=== PATIENT | female | born 1980 | race Caucasian/White ===

== ENCOUNTER 2024-04-12 08:47 | Outpatient (CLI) | payer BC, SELFPAY ==
--- OUTSIDE RECORDS SUMMARY | 2024-04-12 08:54 | XMS_ITS | Continuity of Care Document ---
Author Organization [facility] Address [address] [place] [address] Phone Care Team Providers Care Quantitative Consultant Name Role Phone Eliana PEDERSEN, PhD, Julio Unavailable Unavai lable Allergies, Adverse Reactions, Alerts Substance Reaction Status Criticality No Known Allergies Active No Inform ation Medications Medication Instructions Dosage Effective Dates (start - stop) Status Comments BACLOFEN (unknown strength) Not Available - Active KEFLEX (unknown strength) Not Available - Active VITAMIN D3 (unknown strength) Not Available - Active ADDERALL (unknown strength) Not Available - Active LEXAPRO (unknown strength) Not Available - Active GABAPENTIN (unknown strength) Not Available - Active NORCO (unknown strength) Not Available - Active DEPO-PROVERA (unknown strength) Not Available - Active LITHIUM CARBONATE (unknown strength) Not Available - Active PREDNISONE (unknown strength) Not Available - Active SEROQUEL (unknown strength) Not Available - Active Procedures Procedure Date Office/Outpatient Visit,[facility], Mod 2023 X-Ray Exam Of Neck Spine, 4+ Views Mar- X-Ray Exam Lwr Spine, Min 4 Views Office/Outpatient Visit,[facility], Mod 2019 Advance Directives Directive Yes / No Effective Date File Name No Information Encounters Encounter Description Practice Location Reason(s) For Visit Diagnoses Date Provider Providers Copied on Encounter [facility], [address], [facility] [place] [facility], [id number], [place] tel:[phone] [facility] No Information Eliana Kim. [facility], [address], [facility] [place], [address], [place]. tel:[phone] Office/Outpat ient Visit,New, Mod [facility], [address], [facility] [place], [id number], [place] tel:[phone] [facility] Spondylolisthe sis, lumbar regionSpinal stenosis, lumbar region with neurogenic claudication Eliana Kim. [facility], [address], [facility] [place], [address], [place]. tel:[phone] Referring Provider: Juilo Monroy, [facility] [address], [place], [address]. tel:[phone] Office/Outpat ient Visit,New, Mod [facility], [address], [facility] [place], [id number], [place] tel:[phone] [facility] No Information Eliana Kim. [facility], [address], [place], [address], [place]. tel:[phone] Referring Provider: Julio Monroy, [facility] [address], [place], [address]. tel:[phone] Family History Family Member Type Diagnosis Age At Onset No Information Payers Payer name Insurance type Covered green party ID Karyn vilchis([place] [id number] [facility] [id number] Social History Type Description Quantity Date Captured Comments Alcohol Use Details Unknown Caffeine Use Details Unknown Tobacco Use Status Smoking Status No Information Sex Female Chief Complaint And Reason For Visit No Information Reason For Referral Reason For Referral No Information Plan Of Treatment Date Type Action Status Future Order: Radiology Order Tr ansforaminal Kxupeqh-Atoxni-Gxtgpnzlqhljvl (TRANSLUMNONPART), Ordered on: Ordered History Of Present Illness Encounter Date Complaint History Of Prese nt Illness No Information Functional Status Date Functional Assessmen t No Information Instructions Date Instruction Additional Infor mation No Information Assessments Type Assessment Date No Information Patient Care Teams Name Effective Dates (start - stop) Status Members No Information
--- OUTSIDE RECORDS SUMMARY | 2024-04-12 08:54 | XMS_ITS | Clinical Summary ---
Author Organization [facility] Address [place], [place] [address] Care Team Providers Care Imagery Intelligence Name Role Phone Sophie Ren Primary Care Provider [phone] Allergies No known active allergies Medications Medication Sig Dispensed Refills Start Date End Date Status multivitamin (MVI) tablet Take 1 tablet by mouth once daily. 0 03/17/2017 Active durable medical equipment (DME)Indications:Cl osed fracture of left foot, initial encounter [id number] Ezequiel, Jefry, Medium 1 Each 04/24/2022 Active NebulizerIndication s:Moderate persistent asthma without complication Use as directed for asthma. 1 Each 12/11/2022 Active NebulizerIndication s:Moderate persistent asthma with acute exacerbation Use as directed. 1 Each 01/23/2023 Active albuterol (PROVENTIL) 0.083 % neb solutionIndications :Moderate persistent asthma without complication Inhale 3 mL (2.5 mg) via a nebulizer every 4 hours if needed for Shortness Of Breath or Wheezing. 180 mL 11 01/23/2023 Active fluticasone propion-salmeteroL (Advair Diskus) 250-50 mcg/Dose diskus inhalerIndications: Moderate persistent asthma with acute exacerbation Inhale 1 Puff by mouth every 12 hours. 60 Each 01/23/2023 Active adapalene (DIFFERIN) 0.1 % creamIndications:Ac ne vulgaris Apply topically to affected area(s) at bedtime. 45 g 2 05/12/2023 Active amLODIPine (NORVASC) 5 mg tabletIndications:H TN (hypertension) Take 1 Tablet (5 mg) by mouth once daily. 90 Tablet 3 09/21/2023 Active albuterol HFA (PRO-AIR; VENTOLIN; PROVENTIL) 90 mcg/actuation inhalerIndications: Moderate persistent asthma without complication Inhale 1-2 Puffs by mouth every 4 hours if needed for Shortness Of Breath or Wheezing. 8.5 g 11 09/21/2023 Active LORazepam (ATIVAN) 0.5 mg tabIndications:Felicity c attack Take 1 Tablet (0.5 mg) by mouth every 6 hours if needed for Anxiety. 30 Tablet 1 12/31/2023 Active dextroamphetamine-a mphetamine (Adderall XR) 30 mg Extended-Release capsuleIndications: Attention deficit hyperactivity disorder (ADHD), combined type Take 1 Capsule (30 mg) by mouth once daily. 30 Capsule 03/02/2024 4 Active dextroamphetamine-a mphetamine (Adderall XR) 30 mg Extended-Release capsuleIndications: Attention deficit hyperactivity disorder (ADHD), combined type Take 1 Capsule (30 mg) by mouth once daily. 30 Capsule 04/01/2024 4 Active dextroamphetamine-a mphetamine (Adderall XR) 30 mg Extended-Release capsuleIndications: Attention deficit hyperactivity disorder (ADHD), combined type Take 1 Capsule (30 mg) by mouth once daily. 30 Capsule 05/01/2024 Active traMADoL (ULTRAM) 50 mg tabletIndications:C ervical radicular pain,Lumbar radicular pain Take 1 Tablet (50 mg) by mouth 2 times daily if needed for Pain. 20 Tablet 04/01/2024 Active traMADoL (ULTRAM) 50 mg tabletIndications:C ervical radicular pain,Lumbar radicular pain Take 1 Tablet (50 mg) by mouth 2 times daily if needed for Pain. 20 Tablet 03/08/2024 4 Discontinue d(Reorder (E-cancel not sent)) Hospital, Clinic, or Other Facility Administered Medication Ordered Dose Route Frequency Start Date End Date Status medroxyPROGESTERone acetate (contraceptive) (DEPO-PROVERA) injection 150 mgIndications:Depo-Pr overa contraceptive status 150 mg IM Q 3 MONTHS (12 WEEKS) 02/20/2024 01/21/2025 Active Active Problems Problem Noted Date Diagnosed Date ASCUS with positive high risk HPV cervical 05/14 Overview (10/01/2023): 04/04/2015 NIL/HPV Negative 2015 Abnormal pap/HPV+ 2016 Abnormal pap/HPV+ 2017 Abnormal pap/HPV+ (never had a colp per pt) 05/14/2021 ASCUS/HPV+, HPV 16+, HPV 18 negative 09/2023 NIL/HPV negative. Plan: Pap/HPV due 09/2024. Mild intermittent asthma without complication Major depressive disorder wi th single episode, in full remission 04/06/2018 Chronic pain syndrome 04/06/2018 Anxiety 04/06/2018 Acute bilateral low back pain with left-sided sc iatica 12/14/2017 Attention deficit hyperactiv ity disorder (ADHD), combined type 03/21/2016 Overview (03/21/2016): diagnosed by psychiatrist-Dr Castañeda Migraine without aura 03/21/2016 Overview (03/21/2016): Dr Castañeda Resolved Problems Problem Noted Date Diagnosed Date Resolved Date Attention deficit hyperactiv ity disorder (ADHD), combined type 07/06/2020 05/26/2022 Overview (11/12/2020): Dr. Nair Lymphadenopathy 04/19/2018 05/26/2022 Overview (04/19/2018): 04/2018 Patient noted to have lymphadenopathy on CT scan most likely secondary to her pulmonary edema and effusions. However, in discussion with radiology, given history of smoking, we recommend repeat CT scan in 6 months to one year to assess for resolution. Hemothorax 04/10/2018 05/26/2022 Pleural effusion 04/10/2018 05/26/2022 Bacteremia 04/10/2018 05/26/2022 Acute systolic (congestive) heart failure 04/10/2018 05/26/2022 Septic shock due to Escherichia coli 04/08/2018 05/26/2022 Pyelonephritis 04/08/2018 05/26/2022 Gram negative septic shock 04/07/2018 1 07/26/2021 Severe sepsis 04/06/2018 05/26/2022 ADHD 04/06/2018 09/27/2019 depression 03/21/20162021 Overview (03/21/2016): Dr Castañeda Previous delivery a ffecting , delivered 09/21/2015 03/21/2016 Previous delivery a ffecting , antepartum 08/23/2015 03/21/2016 Overview (08/23/2015): Previous C/S (4) Uterine scar from previous c esarean delivery affecting 08/21/2015 03/21/2016 labor in third trime ster without delivery 08/21/2015 03/21/2016 tubal ligation planned 08/21/2015 03/21/2016 Abdominal pain affecting pre gnancy, antepartum 08/21/2015 03/21/2016 Overview (08/21/2015): 4 prior cesareans, ? scar dehisc vs other etiol? Unspecified problem associat ed with amniotic cavity and membranes, antepartum 06/24/2007 016 Overview (06/24/2007): apparent amniotic cyst not obstructing umbilical cord Acute sinusitis, unspecified 10/25/2006 03/21/2016 Headache(784.0) 10/25/2006 03/21/2016 Tobacco use disorder 10/25/2006 016 Acute upper respiratory infe ctions of unspecified site 10/25/2006 08/21/2015 Unspecified asthma(493.90) 1 07/26/2021 Encounters Date Type Department Care Team Description 04/11/2024 Travel 04/04/2024 Telephone [facility] [address] [place] [address] Jason Denise MD Questions (LUMBAR INJECTION) 03/17/2024 Transcribe Orders [facility] [address] [place] [address] Jason Denise MD 03/08/2024 2:10 PM CDT Phone Office Visit [facility] [address] [place] [address] Sophie Ren PA Form (FMLA forms-she still needs to request for [employer]) 03/08/2024 Travel 02/26/2024 Orders Only [facility] [address] [place] [address] Sophie Ren PA <No scans attached> 2024 4:15 PM CDT Ancillary Procedure [facility] [address] [facility] [address] [place] [address] 2024 3:30 PM CDT Ancillary Procedure [facility] [address] [facility] [address] [place] [address] 2024 Travel 02/19/2024 8:50 AM CDT Office Visit [facility] [address] [place] [address] Sophie Ren PA Back Pain (Off and on numbness in arm and leg-low back pain and fusion in neck getting worse again-also wants depo shot) 02/19/2024 Travel from Last 3 Months Immunizations Name Administration Dates Next Due Influenza Virus, Unspecified 04/04/2015,07/27/19 13,04/23/2011,05/13/2010 Influenza, CCIIV3 (Age >=6 MO) 02/20/2015 Influenza, IIV3 (Age >=3 years) 04/24/2009,04/30 Influenza, IIV4 03/16/2020,04/26/2019 Influenza, IIV4 (=>6mos) MDV 04/04/2015 Td (Age >=7 Years) 12/18/2001 Tdap 08/09/2015,07/27/2012 Family History Medical History Relation Name Comments Bipolar disorder Father Good Health Father Cancer Maternal Grandfather lung Cancer-breast Maternal Grandmother 40s Good Health Mother Cancer Paternal Uncle lung Bipolar disorder Sister Kristal Relation Name Status Comments Father Alive Maternal Grandfather Maternal Grandmother Mother Alive Paternal Uncle Sister Kristal Alive Social History Tobacco Use Types Packs/Day Years Used Date Smoking Tobacco: Some Days Cigarettes 1 15 Smokeless Tobacco: Never Tobacco Cessation:Ready to Q uit: Yes; Counseling Given: Yes Comments:a few cigarettes/week Alcohol Use Standard Drinks/Week Comments Yes 0 (1 standard drink = 0.6 oz pur e alcohol) occ. PHQ-2 Answer Date Recorded PHQ-2 TOTAL SCORE 0 09/21/2023 Social Connections Answer Date Recorded Frequency of Communication with Friends and Fami ly 0 09/21/2023 Financial Resource Strain Answer Date R ecorded Difficulty of Paying Living Expenses 3 09/21/2023 Difficulty of Paying Living Expenses Not on file 09/21/2023 Food Insecurity Answer Date Recorded Worried About Running Out of Food in the Last Ye ar 1 09/21/2023 Transportation Needs Answer Date Record ed Lack of Transportation (Medical) 1 09/21/2023 Housing Stability Answer Date Recorded Unable to Pay for Housing in the Last Year 1 09/21/2023 Sex and Gender Information Value Date Recorded Sex Assigned at Not on file Gender Identity Not on file Sexual Orientation Not on file Obstetrics History Para Term AB IAB SAB Ectopic Multiple Livin g Live Births 5 5 2 3 5 5 Date Outcome GA Total Labor Labor/2nd/3rd Weight Sex Type Anes PTL Amita A1 A5 Name Clin 997 Term 37w 0d 2.95 kg (6 lb 8 oz) M C-Sec tion N Livin g Hosea 003 Term 37w 0d 2.58 kg (5 lb 11 oz) F C-Sec tion Y Livin g Nomi n Complications: contra ctions 008 36w 0d 2.83 kg (6 lb 4 oz) M C-Sec tion Y Livin g Marco Antonio 012 36w 0d 2.75 kg (6 lb 1 oz) F C-Sec tion N Livin g Arlin Complications:None 016 35w 5d 2.25 kg (4 lb 15.4 oz) M C-Sec tion Livin g 8 7 Tegan Delivery Location:[facility] Last Filed Vital Signs Vital Sign Reading Time Taken Comments Blood Pressure 131/93 02/19/2024 8:53 AM CDT Pulse 110 02/19/2024 8:53 AM CDT Temperature 36.9 ??C (98.5 ??F) 08/04/2022 9:13 AM CS T Respiratory Rate 16 08/04/2022 9:13 AM WOOL SAMPLER Oxygen Saturation 100% 02/19/2024 8:53 AM CDT Inhaled Oxygen Concentration - - Weight 53.1 kg (117 lb) 02/19/2024 8:53 AM CDT Height 159.6 cm (5' 2.84) 09/21/2023 3:40 PM CD T Body Mass Index 20.83 09/21/2023 3:40 PM CDT Plan of Treatment Health Maintenance Due Date Last Done Comments Pneumococcal series for age 6-64 (1 of 2 - PCV) 1985 HIV for age 15-65 1994 Hepatitis C screening for ag e 18-79 1997 Colonoscopy through age 75 02/25/2024 Lipids for age 45-75 02/25/2024 COVID-19 vaccine series ( season) 2024 Influenza for age 9-49 03/06/2024 , 04/26/2019, 04/04/2015, Additional history exists BMI (ht and wt on same day) for age 18+ 09/20/2024 09/21/2023, 01/23/2023, 08/04/2022, Additional history exists Depression screening for age 12+ 09/20/2024 09/21/2023, 08/04/2022, 05/14/2021, Additional history exists Pap test for age 21-65 09/20/2024 , 09/21/2023, 05/14/2021, Additional history exists Mammogram for age 45-75 09/22/2024 09/23/2023, 09/16 Tetanus booster 08/09/2025 08/09/2015, 07/07, 12/18/2001 Tdap Completed 08/09/2015, 07/27/2012 Procedures Procedure Name Priority Date/Time Associated Diagnosis Comments AMB EPIDURAL STEROID INJECTION Routine 04/12/2024 8:20 AM CDT Spinal stenosis, lumbar region, with neurogenic claudication MR SPINE LUMBAR WO Routine 2024 4: 02 PM CDT Chronic radicular lumbar pain MR SPINE CERVICAL WO Routine 2024 3:44 PM CDT Chronic radicular cervical pain Spinal stenosis, cervical region DDD (degenerative disc disease), cervical URINE Routine 02/19/2024 9:20 AM CDT Depo-Provera contraceptive status XR MAMMO UNI ADDL VIEWS IMPLANT RIGHT TAVON 09/23/2023 12:14 PM CDT Abnormal mammogram HPV HIGH RISK Routine 09/21/2023 3:59 PM CDT Screening for malignant neoplasm of cervix from Last 3 Months or Most Recently Relevant to Health Maintenance Results * MR SPINE LUMBAR WO (2024 4:02 PM CDT) Anatomical Region Laterality Modality Spine, LUMBAR SPINE Magnetic Res onance 02/25/2024 11:1 5 AM CDT Impressions 02/25/2024 11:15 AM CDT 1. Lumbar curve convex to the right. New degenerative grade 1 anterolisthesis of L3 on L4. Bilateral pars defects of L5. 2. Otherwise normal alignment. No fractures. 3. Lumbar spondylosis. Marrow edema of the articular processes of the bilateral L3-4 facet joints which may be secondary to stress reaction or mild inflammation 4. At L3-4, moderate narrowing of the spinal canal. Moderate to severe narrowing of the left neural foramen. Potential impingement of the exiting left L3 nerve root 5. Mild narrowing of the neural foramina at L4-5 and L5-S1 Dictated by Samm Walsh MD @ 02/25/2024 11:15:02 AM (Electronically Signed) Narrative 02/25/2024 11:15 AM CDT For Patients: ??As a result of the 21st Century Cures Act, medical imaging exams and procedure reports are released immediately into your electronic medical record. ??You may view this report before your referring provider. ??If you have questions, please contact your health care provider. INDICATION: Chronic radicular low back pain. COMPARISON: 05/09/2017. TECHNIQUE: Sagittal T1, T2, and STIR sequences. Axial T1 and T2 weighted sequences. FINDINGS: Lumbar curve convex to the right. In sagittal plane, grade 1 anterolisthesis of L3 on L4 measures approximately 5 mm. Bilateral pars defects of L5. No spondylolisthesis. Otherwise, normal alignment. No fractures. No vertebral body loss of height. No ligamentous injury. No suspicious osseous lesions. Normal conus terminates at L1. Lumbar spondylosis with multilevel disc degeneration. Marrow edema of the articular processes of the bilateral L3-4 facet joints which may be secondary to stress reaction or mild inflammation from facet arthritis. Normal conus terminates at L1-2. [id number] L1-2: No spinal canal or neural foraminal narrowing. L2-3: Mild disc degeneration. Diffuse disc bulge. No spinal canal neural foraminal narrowing. L3-4: Grade 1 anterolisthesis. Disc degeneration. Mixed Modic type 1 and 2 endplate changes. Unroofed posterior disc bulge. Moderate narrowing of spinal canal. Oblique orientation of bilateral foramina with mild right and moderate severe left neural foraminal narrowing. Potential impingement of the exiting left L3 nerve root. Mild facet arthropathy. L4-5: No narrowing of the spinal canal. Mild narrowing of bilateral foramina. Mild facet arthropathy. L5-S1: Disc degeneration. Diffuse disc bulge eccentric to the right. No narrowing of the spinal canal. No impingement of the traversing S1 nerve roots. Mild narrowing of the right neural foramen. No narrowing of left neural foramen. Normal visualized SI joints. Normal paraspinal soft tissues. Procedure Note Samm Walsh MD, PhD - 02/25/2024 For Patients: As a result of the 21st Century Cures Act, medical imagingexams and procedure reports are released immediately into your electronicmedical record. You may view this report before your referring provider.If you have questions, please contact your health care provider. INDICATION: Chronic radicular low back pain. COMPARISON: 05/09/2017. TECHNIQUE: Sagittal T1, T2, and STIR sequences. Axial T1 and T2 weighted sequences. FINDINGS: Lumbar curve convex to the right. In sagittal plane, grade 1anterolisthesis of L3 on L4 measures approximately 5 mm. Bilateral pars defects of L5. No spondylolisthesis. Otherwise, normal alignment. No fractures. No vertebral body loss ofheight. No ligamentous injury. No suspicious osseous lesions. Normal conusterminates at L1. Lumbar spondylosis with multilevel disc degeneration. Marrow edema of thearticular processes of the bilateral L3-4 facet joints which may besecondary to stress reaction or mild inflammation from facet arthritis. Normal conus terminates at L1-2. [id number] L1-2: No spinal canal or neural foraminal narrowing. L2-3: Mild disc degeneration. Diffuse disc bulge. No spinal canal neuralforaminal narrowing. L3-4: Grade 1 anterolisthesis. Disc degeneration. Mixed Modic type 1 and 2endplate changes. Unroofed posterior disc bulge. Moderate narrowing ofspinal canal. Oblique orientation of bilateral foramina with mild rightand moderate severe left neural foraminal narrowing. Potential impingementof the exiting left L3 nerve root. Mild facet arthropathy. L4-5: No narrowing of the spinal canal. Mild narrowing of bilateralforamina. Mild facet arthropathy. L5-S1: Disc degeneration. Diffuse disc bulge eccentric to the right. Nonarrowing of the spinal canal. No impingement of the traversing S1 nerveroots. Mild narrowing of the right neural foramen. No narrowing of leftneural foramen. Normal visualized SI joints. Normal paraspinal soft tissues. IMPRESSION: 1. Lumbar curve convex to the right. New degenerative grade 1anterolisthesis of L3 on L4. Bilateral pars defects of L5. 2. Otherwise normal alignment. No fractures. 3. Lumbar spondylosis. Marrow edema of the articular processes of thebilateral L3-4 facet joints which may be secondary to stress reaction ormild inflammation 4. At L3-4, moderate narrowing of the spinal canal. Moderate to severenarrowing of the left neural foramen. Potential impingement of the exitingleft L3 nerve root 5. Mild narrowing of the neural foramina at L4-5 and L5-S1 Dictated by Samm Walsh MD @ 02/25/2024 11:15:02 AM (Electronically Signed) Sophie ESCOBAR MR * MR SPINE CERVICAL WO (2024 3:44 PM CDT) Anatomical Region Laterality Modality Spine, CERVICAL SPINE Magnetic R esonance 02/25/2024 11:0 5 AM CDT Impressions 02/25/2024 11:05 AM CDT 1. Normal alignment. No fractures. 2. Stable postop changes C4-5. 3. Normal cord signal. No intradural mass or lesion. 4. Marrow edema of the articular processes of the right C7-T1 facet joint which may be secondary to stress reaction or inflammation 5. At C3-4, mild narrowing of the spinal canal. Mild right and moderate left neural foraminal narrowing. 6. At C6-7, moderate narrowing of the left neural foramen. 7. At C7-T1, mild narrowing of the bilateral neural foramina Dictated by Samm Walsh MD @ 02/25/2024 11:05:21 AM (Electronically Signed) Narrative 02/25/2024 11:05 AM CDT For Patients: ??As a result of the Cures Act, medical imaging exams and procedure reports are released immediately into your electronic medical record. ??You may view this report before your referring provider. ??If you have questions, please contact your health care provider. INDICATION: Radicular neck pain. COMPARISON: 12/25/2019. TECHNIQUE: Sagittal T1, T2, and STIR sequences. Axial T2/gradient sequences. FINDINGS: Stable straightening of the normal cervical lordosis. Stable mature postoperative changes anterior discectomy and fusion C4-5. No fractures. No vertebral body loss of height. No ligamentous injury. No suspicious osseous lesions. Normal cord signal. No intradural mass or lesion. Marrow edema of the articular processes of the right C7-T1 facet joint which may be secondary to stress reaction or inflammation from facet arthritis. Normal cord signal. No intradural mass or lesion. C1-2: No spinal canal narrowing. C2-3: Disc generation posted disc bulge. No narrowing of the spinal canal. No neural foraminal narrowing. C3-4: Disk degeneration. Loss disc height. Posterior disc bulge or disc osteophyte complex. Mild narrowing of the spinal canal. Uncovertebral joint hypertrophy results in mild right and moderate left neural foraminal narrowing. C4-5: No spinal canal or neural foraminal narrowing. C5-6: Disc generation and posterior disc bulge a disc osteophyte complex. No narrowing of spinal canal. No neural foraminal narrowing. C6-7: Disc generation posted disc bulge disc osteophyte complex. No narrowing of the spinal canal. Uncovertebral joint hypertrophy results in moderate narrowing of left neural foramen. No narrowing of the right neural foramen. C7-T1: Disc degeneration posterior disc bulge. No narrowing of spinal canal. Mild narrowing of the bilateral foramina. No spinal canal or neural foraminal narrowing in the visualized upper thoracic spine. Procedure Note Samm Walsh MD, PhD - 02/25/2024 For Patients: As a result of the Cures Act, medical imagingexams and procedure reports are released immediately into your electronicmedical record. You may view this report before your referring provider.If you have questions, please contact your health care provider. INDICATION: Radicular neck pain. COMPARISON: 12/25/2019. TECHNIQUE: Sagittal T1, T2, and STIR sequences. Axial T2/gradient sequences. FINDINGS: Stable straightening of the normal cervical lordosis. Stable maturepostoperative changes anterior discectomy and fusion C4-5. No fractures. No vertebral body loss of height. No ligamentous injury. Nosuspicious osseous lesions. Normal cord signal. No intradural mass orlesion. Marrow edema of the articular processes of the right C7-T1 facet jointwhich may be secondary to stress reaction or inflammation from facetarthritis. Normal cord signal. No intradural mass or lesion. C1-2: No spinal canal narrowing. C2-3: Disc generation posted disc bulge. No narrowing of the spinal canal.No neural foraminal narrowing. C3-4: Disk degeneration. Loss disc height. Posterior disc bulge or discosteophyte complex. Mild narrowing of the spinal canal. Uncovertebraljoint hypertrophy results in mild right and moderate left neural foraminalnarrowing. C4-5: No spinal canal or neural foraminal narrowing. C5-6: Disc generation and posterior disc bulge a disc osteophyte complex.No narrowing of spinal canal. No neural foraminal narrowing. C6-7: Disc generation posted disc bulge disc osteophyte complex. Nonarrowing of the spinal canal. Uncovertebral joint hypertrophy results inmoderate narrowing of left neural foramen. No narrowing of the rightneural foramen. C7-T1: Disc degeneration posterior disc bulge. No narrowing of spinalcanal. Mild narrowing of the bilateral foramina. No spinal canal or neural foraminal narrowing in the visualized upperthoracic spine. IMPRESSION: 1. Normal alignment. No fractures. 2. Stable postop changes C4-5. 3. Normal cord signal. No intradural mass or lesion. 4. Marrow edema of the articular processes of the right C7-T1 facet jointwhich may be secondary to stress reaction or inflammation 5. At C3-4, mild narrowing of the spinal canal. Mild right and moderateleft neural foraminal narrowing. 6. At C6-7, moderate narrowing of the left neural foramen. 7. At C7-T1, mild narrowing of the bilateral neural foramina Dictated by Samm Walsh MD @ 02/25/2024 11:05:21 AM (Electronically Signed) Sophie ESCOBAR MR * URINE (02/19/2024 9:20 AM CDT) ,URIN E Negative Negative 02/19/2024 9:29 AM CDT [facility] Urine URINE SPECIMEN / Unknown Non-Blood / Unknown 02/19/2024 9:20 AM CDT 02/19/2024 9:23 AM CDT Sophie ESCOBAR URINE [facility] [address] [place] [address], * XR MAMMO UNI ADDL VIEWS IMPLANT RIGHT (09/23/2023 12:14 PM CDT) Anatomical Region Laterality Modality BREASTS, Breast Right Mammograph y 09/23/2023 12:5 1 PM CDT Impressions 09/23/2023 2:03 PM CDT 1. Current findings as well as the recent ultrasound exam are subtle but suggestive of a lymph node corresponding to the density noted in the lateral RIGHT breast. No biopsy is warranted at this time. Results of study were discussed with the patient. 2. Recommend a follow-up limited mammogram, similar to the current study in six months to assess for stability. BI-RADS Category 3: Probably Benign Dictated by: Riccardo Herman MD @09/23/2023 12:51:36 PM/CRL:sp PATIENTS: You will also receive a letter with your examination results in an easy to read format. ??If you have questions about your results, please contact your referring provider. Narrative 09/23/2023 2:03 PM CDT As a result of the Century Cures Act, medical imaging exams and procedure reports are released immediately into your electronic medical record. ??You may view this report before your referring provider. ??If you have questions, please contact your health care provider. RIGHT DIGITAL ADDITIONAL VIEWS IMPLANT MAMMOGRAM 09/23/2023 ?? INDICATION: Nodular density in the lateral RIGHT breast noted on the screening mammogram and recent ultrasound. TECHNIQUE: Diagnostic RIGHT mammogram. BREAST COMPOSITION: ??There are scattered areas of fibroglandular density. COMPARISON: ?? Mammogram 09/17/2023 and RIGHT breast ultrasound 09/22/2023. FINDINGS: Additional tomographic views re-demonstrate an oblong nodule at the 9 o'clock position RIGHT breast which has the suggestion of a fatty hilum typical for a lymph node. Teddy Herman MD MAMMO * HPV HIGH RISK (09/21/2023 3:59 PM CDT) TYPE 16 Negative Negative 09/25/2023 11:31 AM CDT [facility] TYPE 18 Negative Negative 09/25/2023 11:31 AM CDT [facility] OTHER HIGH RISK TYPES Negative Negative 09/25/2023 11:[address] [facility] Other (Cervical) Non-Blood / Unknown 09/21/2023 3:59 PM CDT 09/23/2023 11:58 AM CDT Narrative [facility] - 09/25/2023 11:31 AM CDT HPV types 16, 18, 31, 33, 35, 39, 45, 51, 52, 56, 58, 59, 66 and 68 DNA were undetectable or below the pre-set threshold. Methodology: IKOR METERING Michael 4800 HPV Test Sophie ESCOBAR MICROBIOLOGY [facility] [address] [place] [address], [place] from Last 3 Months or Most Recently Relevant to Health Maintenance Advance Directives * Full Code (Latest Code Status on File) Date Activated Date Inactivated Comments 04/12/2020 9:24 AM 04/12/2020 2:55 PM Question Answer Comments Code Status Discussion: Per Existing Order * Full Code Date Activated Date Inactivated Comments 04/06/2018 3:30 PM 04/08/2018 2:16 AM Question Answer Comments Code Status Discussion: Discussed * Full Code Date Activated Date Inactivated Comments 09/21/2015 2:03 PM 09/23/2015 2:20 PM * Full Code Date Activated Date Inactivated Comments 09/21/2015 10:14 AM 09/21/2015 2:03 PM * Full Code Date Activated Date Inactivated Comments 09/16/2015 5:37 PM 09/16/2015 9:58 PM Care Teams Imagery Intelligence Relationship Specialty Start Date End Date Sophie Ren PA [address] [place] [id number] PCP - General Physician Document Reviewer 01/23/23
== END 2024-04-12 08:48 | disposition home or self-care (01) ==
PROVIDERS: PCP Physician Assistant; Visit Provider Family Medicine
DX: M54.16 Radiculopathy, lumbar region (principal); M51.369 Other intervertebral disc degeneration, lumbar region without mention of lumbar back pain or lower extremity pain
CPT/HCPCS: 64483; J1100; Q9966